=== PATIENT | female | born 1985 | race Caucasian/White ===

== ENCOUNTER 2017-01-12 19:49 | Emergency (ER) | payer OTHER ==
[2017-01-12 22:35] LABS: HEMOGLOBIN 14.1 gm/dl (12.3-15.3); RED BLOOD COUNT 5.03 M/UL (4.00-5.10); WHITE BLOOD COUNT 12.1 K/UL (4.5-11.0)
[2017-01-12 22:53] LABS: BUN/CREATININE RATIO 14 (0-10)
== END 2017-01-13 00:55 | disposition home or self-care (01) ==
LOC: ER1 19:49
PROVIDERS: Physician Assistant
DX: N83.202 Unspecified ovarian cyst, left side (principal); N39.0 Urinary tract infection, site not specified; L02.211 Cutaneous abscess of abdominal wall; F17.210 Nicotine dependence, cigarettes, uncomplicated; E78.5 Hyperlipidemia, unspecified; I10 Essential (primary) hypertension; Z88.8 Allergy status to other drugs, medicaments and biological substances
CPT/HCPCS: 36415; 71010; 80053; 81001; 83690; 84484; 84703; 85025; 87086; 93005; 96361; 96374; 99284; J2405; J7050; Q9962

== ENCOUNTER 2017-02-10 21:13 | Emergency (ER) | payer OTHER | END 2017-02-11 01:50 | disposition left against medical advice (07) | LOC: ER1 21:13 | DX: Z53.21 Procedure and treatment not carried out due to patient leaving prior to being seen by health care provider (principal) | CPT/HCPCS: 93005 ==

== ENCOUNTER → 2021-02-28 | Outpatient (CLI) | payer OTHER ==
[~2021-02-28] MED LIST: IBU800 MG PO; LODINE CAP 300300 MG PO; OMNICEF 300 MG300 MG PO; TESSALON PERLE100 MG PO; VENTOLIN HFA 66.7 GM INH; ZITHROMAX500 MG PO
== END ==
LOC: RAD 15:58
DX: R05 Cough (principal)
CPT/HCPCS: 71046